=== PATIENT | female | born 1945 | race Caucasian/White ===

== ENCOUNTER 2017-07-28 17:17 | Inpatient (IN) | payer MEDICARE, OTHER ==
[~2017-07-28] VITALS: Ht 160 cm; Wt 70.3 kg
--- NOTE | ~2017-07-28 | IDS ---
Interim Discharge Summary [facility] [address] [place]. [address] NAME: ANA MARIA BLANCHARD : [birth year] STATUS : ADM IN [facility]#: [id number] AGE: 72 ADM/REG DATE : 07/28/17 MR#: [id number] REPORT SERV DATE: 08/02/17 DICTATED BY: SHAWANDA العراقي DATE: 08/01/17 REPORT STATUS : Draft TRANSCRIBED BY: MODL DATE: 08/01/17 ADMISSION DATE: 07/28/2017 DISCHARGE DATE: CONDITION OF THE PATIENT: Stable. DIAGNOSES: 1. Acute blood loss anemia status post transfusion. 2. GI hemorrhage, probably secondary to portal hypertensive gastropathy - the patient underwent both EGD and colonoscopy - EGD showed portal hypertensive gastropathy and nonbleeding mild esophageal varices. 3. Colonoscopy showed hemorrhoids. Again, no acute source of bleeding was identified. The patient does have the diagnosis of newly diagnosed cirrhosis. This is probably most likely secondary to LOW. However, her hepatitis serology is pending at this time. GI is following. The patient also has a history of mechanical aortic valve for which she is on Coumadin - Coumadin has been held as the patient was getting her endoscopy. Coumadin will be restarted in the morning. For now, she is on IV heparin for bridge therapy and the goal is again to start her back on Coumadin to keep her INR at least above 2.5 before she is discharged home. Other diagnoses that are stable in this patient include insulin-requiring diabetes mellitus, hypertension, coronary artery disease, and restless legs syndrome, which are all stable. BRIEF HOSPITAL COURSE: Please see H and P for details, but in summary, this is a patient who is 72-year-old, who came in with GI bleed and acute blood loss anemia. The patient's Coumadin was held and she was transfused with 2 units of PRBCs and GI was consulted. The patient underwent both upper and lower endoscopy and results are as dictated above. After endoscopy, the patient's heparin has been restarted and her Coumadin will be started pretty soon as no areas of acute bleeding have been identified so far. Once her INR gets therapeutic to 2.5 or above, the patient should be able to be discharged home. There is a new diagnosis which was diagnosed while in the hospital was cirrhosis. 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 However, her hepatitis serology is pending at this time. So please check on hepatitis B and hepatitis C. The patient has no history of any alcohol use. I have taken care of this patient until 08/01/2017 and one of my colleagues will be taking over care of this patient on 08/02/2017. KATHLEEN/ROSA Shawanda العراقي M.D. Interim Discharge Summary [address] [address] NAME: ANA MARIA BLANCHARD : [birth year] STATUS : ADM IN [facility]#: [id number] AGE: 72 ADM/REG DATE : 07/28/17 MR#: [id number] REPORT SERV DATE: 08/02/17 DICTATED BY: SHAWANDA العراقي DATE: 08/01/17 REPORT STATUS : Draft TRANSCRIBED BY: ROSA DATE: 08/01/17 / [id number] CC: Albaro Riojas D.O.
--- NOTE | ~2017-07-28 | EGD ---
EGD REPORT [facility] [address] [place]. [address] NAME: ANA MARIA CUETO : [birth year] STATUS : ADM IN PAT#: [id number] AGE: 72 ADM/REG DATE : 07/28/17 MR#: [id number] REPORT SERV DATE: 08/01/17 DICTATED BY: AMY BRITTON DATE: 08/01/17 REPORT STATUS : Draft TRANSCRIBED BY: [facility] DATE: 08/01/17 Endoscopy Center Patient Name: Ana Maria Cueto Date of : 1945 Attending MD: AMY BRITTON MD Procedure Date No Time: 08/01/2017 Procedure: Upper GI endoscopy Indications: Iron deficiency anemia secondary to chronic blood loss, Cirrhosis with suspected esophageal varices Referring MD: AMPARO JONES Medicines: Propofol per Anesthesia Complications: No immediate complications. Estimated blood loss: None. Procedure: Pre-Anesthesia Assessment: - ASA Grade Assessment: III - A patient with severe systemic disease. - After reviewing the risks and benefits, the patient was deemed in satisfactory condition to undergo the procedure. - Prior to the procedure, a History and Physical was performed, and patient medications and allergies were reviewed. The patient's tolerance of previous anesthesia was also reviewed. The risks and benefits of the procedure and the sedation options and risks were discussed with the patient. All questions were answered, and informed consent was obtained. Prior Anticoagulants: The patient has taken Coumadin (warfarin), last dose was 4 days prior to procedure. IV heparin was discontinued 7 hours ago. ASA Grade Assessment: III - A patient with severe systemic disease. After reviewing the risks and benefits, the patient was deemed in satisfactory condition to undergo the procedure. After obtaining informed consent, the endoscope was passed under direct vision. Throughout the procedure, the patient's blood pressure, pulse, and oxygen saturations were monitored continuously. The GIF [id number] was introduced through the mouth, and advanced to the third part of duodenum. The upper GI endoscopy was accomplished without difficulty. The patient tolerated the procedure well. Findings: Grade I and small (< 5 mm) varices with no bleeding were found in the lower third of the esophagus. These had no stigmata of recent bleeding. The varices had no red makayla signs. Mild portal hypertensive gastropathy was found in the gastric body and EGD REPORT [place] [id number] [facility] [place]. [address] NAME: ANA MARIA CUETO : [birth year] STATUS : ADM IN [facility]#: [id number] AGE: 72 ADM/REG DATE : 07/28/17 MR#: [id number] REPORT SERV DATE: 08/01/17 DICTATED BY: AMY BRITTON DATE: 08/01/17 REPORT STATUS : Draft TRANSCRIBED BY: [facility] DATE: 08/01/17 in the gastric antrum. The gastroesophageal junction (on retroflexion) was normal. The examined duodenum was normal. Impression: - Non-bleeding grade I and small (< 5 mm) esophageal varices. - Portal hypertensive gastropathy. - Normal gastroesophageal junction. - Normal examined duodenum. Recommendation: - [facility]. - Return to previous diet with modest sodium restriction. - Continue present medications. - Discontinue atenolol 50 mg daily and begin nadolol 40 mg daily which as a non-cardioselective beta-sarah can be used for primary prophylaxis of variceal hemorrhage. - Perform a colonoscopy today. Procedure Code(s): --- Professional --- 59027, Esophagogastroduodenoscopy, flexible, transoral; diagnostic, including collection of specimen(s) by brushing or washing, when performed (separate procedure) Diagnosis Code(s): --- Professional --- I85.10, Secondary esophageal varices without bleeding K76.6, Portal hypertension K31.89, Other diseases of stomach and duodenum D50.0, Iron deficiency anemia secondary to blood loss (chronic) K74.60, Unspecified cirrhosis of liver CPT copyright 2013 [employer]. All rights reserved. The codes documented in this report are preliminary and upon toy mechanic review may be revised to meet current compliance requirements. AMY BRITTON MD 08/01/2017 8:51 AM This report has been signed electronically. Number of Addenda: 0 Note Initiated On: 08/01/2017 7:27 AM Scope Withdrawal Time 0 hours 0 minutes 0 seconds [id number] [place] [address]
--- NOTE | ~2017-07-28 | CN ---
Consultation Report [facility] [address] [place]. [address] NAME: ANA MARIA CUETO : [birth year] STATUS : ADM IN [facility]#: [id number] AGE: 72 ADM/REG DATE : 07/28/17 MR#: [id number] REPORT SERV DATE: 07/29/17 DICTATED BY: ANABELA HEARD DATE: 07/29/17 REPORT STATUS : Draft TRANSCRIBED BY: MODJulio DATE: 07/29/17 CARDIOLOGY CONSULTATION DATE OF CONSULTATION: 07/29/2017 PRIMARY SWITCH COUPLER: Was Dr. Mccarthy and is now Dr. Ortega. CHIEF COMPLAINT: Fatigue. REASON FOR CONSULTATION: Mechanical aortic valve replacement. SOURCE: The patient's chart. HISTORY OF PRESENT ILLNESS: Ms. Cueto is a very pleasant 72-year-old white woman with history of mechanical aortic valve replacement by Dr. Ba in [address] [employer] mechanical prosthesis. She reports that she was in her usual state of health until about three months ago, when she began to feel bad. She saw Dr. Mo, who ordered tests and diagnosed anemia. She then saw Dr. Ortega in the office and had additional ultrasounds including carotid ultrasound. She then saw Dr. Mo, who did more labs and diagnosed severe anemia, and she was admitted for further evaluation and treatment. She has not had endoscopy yet. She has not had any blood transfusion. She has felt dizzy and nauseated on 06/04 and is still dizzy and nauseated. She has not had any syncope, no swelling. She has had some shortness of breath, but no chest pain. She has noticed fast heartbeat, but no irregular heartbeat or palpitations. She has been fatigued with generalized weakness and poor energy. REVIEW OF SYSTEMS: All other systems are negative. ALLERGIES: ANTIBIOTIC AND . MEDICATIONS AT HOME: Included Elavil, atenolol, digoxin, famciclovir, Lasix, [place], Prevacid, warfarin, meclizine, potassium, Vytorin, warfarin, and Actoplus Met. CARDIAC RISK FACTORS: Diabetes, hypertension, cholesterol, and remote tobacco. Denies family history. SOCIAL HISTORY: The patient lives in [facility]. She is . She has four children, who are alive and well. She is retired. FAMILY HISTORY: Negative for coronary disease at young age. PAST MEDICAL HISTORY: Significant for mechanical AVR in [address] [facility] [address] Ba with a [employer] mechanical prosthesis 09/25/1993. She did not have any bypasses. She Consultation Report [place] [id number] [place]. [address] NAME: ANA MARIA CUETO : [birth year] STATUS : ADM IN [facility]#: [id number] AGE: 72 ADM/REG DATE : 07/28/17 MR#: [id number] REPORT SERV DATE: 07/29/17 DICTATED BY: ANABELA HEARD DATE: 07/29/17 REPORT STATUS : Draft TRANSCRIBED BY: ROSA DATE: 07/29/17 thinks she had a stroke after the replacement. Status post tonsillectomy, status post appendectomy, status post gallbladder surgery, status post hysterectomy, status post left shoulder surgery, status post cataract surgery. PHYSICAL EXAMINATION: GENERAL: Well-developed, well-nourished, elderly white woman, in no acute distress. VITAL SIGNS: The blood pressure is 102/50, pulse 69, temperature 98.1. HEENT: Sclerae anicteric. Lips without cyanosis. Carotids 2+ and symmetrical. Bilateral bruits versus transmitted murmurs. No JVD. No thyromegaly. LUNGS: Clear to auscultation. No use of accessory muscles. HEART: Regular rate and rhythm with mechanical S2, 3/6 systolic murmur. No heaves or thrills. ABDOMEN: Positive bowel sounds. Soft, nontender. EXTREMITIES: Pulses 2+ and symmetrical. No cyanosis, clubbing, or edema. BACK: No CVA tenderness. MUSCULOSKELETAL: Good tone. NEURO: Alert and oriented x3. EKG is not yet done. LABORATORY EXAMINATION: The white count is 5.4, hemoglobin 7.6, hematocrit 25.9, platelets 170,000, MCV 68. Sodium 139, potassium 3.7, chloride 104, CO2 of 29, glucose 92, BUN 18, creatinine 0.88. Troponin of less than 0.02. Iron of 17, TIBC of 49, ferritin of 6. IMPRESSION: 1. Symptomatic microcytic iron-deficiency anemia. 2. Status post mechanical AVR 09/25/1993. 3. Murmur. 4. Carotid bruits. 5. History of stroke. 6. Cardiac risk factors including diabetes, hypertension, cholesterol, and remote tobacco. RECOMMENDATIONS: 1. IV heparin when off Coumadin and INR less than or equal to 2. 2. I agree with GI evaluation. No absolute cardiac contraindication to endoscopy. 3. Obtain results of outside carotid ultrasound. 4. Check EKG. 5. Consider echocardiogram. CRISTINA/ROSA Anabela Heard, Consultation Report [address] [place]. [address] NAME: ANA MARIA CUETO : [birth year] STATUS : ADM IN [facility]#: [id number] AGE: 72 ADM/REG DATE : 07/28/17 MR#: [id number] REPORT SERV DATE: 07/29/17 DICTATED BY: ANABELA HEARD DATE: 07/29/17 REPORT STATUS : Draft TRANSCRIBED BY: ROSA DATE: 07/29/17 Albaro / [id number] CC: MD Lupe Brantley D.O.
--- NOTE | ~2017-07-28 | EGD ---
EGD REPORT [facility] [address] [place]. [address] NAME: ANA MARIA CUETO : [birth year] STATUS : ADM IN PAT#: [id number] AGE: 72 ADM/REG DATE : 07/28/17 MR#: [id number] REPORT SERV DATE: 08/01/17 DICTATED BY: AMY BRITTON DATE: 08/01/17 REPORT STATUS : Draft [facility]ANSCRIBED BY: [facility] DATE: 08/01/17 Endoscopy Center Patient Name: Ana Maria Cueto Date of : 1945 Attending MD: AMY BRITTON MD Procedure Date No Time: 08/01/2017 Procedure: Colonoscopy Indications: Iron deficiency anemia secondary to chronic blood loss Referring MD: AMPARO JONES Medicines: Propofol per Anesthesia Complications: No immediate complications. Estimated blood loss: Minimal. Procedure: Pre-Anesthesia Assessment: - After reviewing the risks and benefits, the patient was deemed in satisfactory condition to undergo the procedure. - Prior to the procedure, a History and Physical was performed, and patient medications and allergies were reviewed. The patient's tolerance of previous anesthesia was also reviewed. The risks and benefits of the procedure and the sedation options and risks were discussed with the patient. All questions were answered, and informed consent was obtained. Prior Anticoagulants: The patient has taken Coumadin (warfarin), last dose was 4 days prior to procedure. IV heparin was discontinued 7 hours before the procedure. ASA Grade Assessment: III - A patient with severe systemic disease. After reviewing the risks and benefits, the patient was deemed in satisfactory condition to undergo the procedure. After I obtained informed consent, the scope was passed under direct vision. Throughout the procedure, the patient's blood pressure, pulse, and oxygen saturations were monitored continuously. The CF [id number] was introduced through the anus and advanced to the cecum, identified by appendiceal orifice and ileocecal valve. The colonoscopy was somewhat difficult due to significant looping. Successful completion of the procedure was aided by applying abdominal pressure. The ileocecal valve and appendiceal orifice were photographed. The patient tolerated the procedure well. The quality of the bowel preparation was adequate. The bowel preparation used was polyethylene glycol (PEG). Scope withdrawal time was greater than 6 minutes. Findings: EGD REPORT [address] [place]. [address] NAME: ANA MARIA CUETO : [birth year] STATUS : ADM IN [facility]#: [id number] AGE: 72 ADM/REG DATE : 07/28/17 MR#: [id number] REPORT SERV DATE: 08/01/17 DICTATED BY: AMY BRITTON DATE: 08/01/17 REPORT STATUS : Draft TRANSCRIBED BY: [employer] DATE: 08/01/17 The perianal and digital rectal examinations were normal. Pertinent negatives include normal sphincter tone. Non-bleeding internal hemorrhoids were found during retroflexion and were small and Grade I (internal hemorrhoids that do not prolapse). 5 mm, non-bleeding anorectal varices were found. A few small-mouthed diverticula were found in the sigmoid colon, in the descending colon and in the transverse colon. An area of moderately congested mucosa was found in the entire colon consistent with portal hypertensive colopathy. Biopsies were taken with a cold forceps from the ascending colon for histology. Estimated blood loss was minimal. The exam was otherwise without abnormality. Impression: - Non-bleeding internal hemorrhoids. - Anorectal varices. - Mild diverticulosis in the sigmoid colon, in the descending colon and in the transverse colon. - Congested mucosa in the entire examined colon consistent with portal hypertensive colopathy. Biopsied. - The examination was otherwise normal. - Cirrhosis of the liver with portal hypertension. - No evidence of active GI bleed. Recommendation: - [facility]. - Return to previous diet with modest sodium restriction. - Continue present medications. - No absolute GI contraindication to resuming anti-coagulation but in light of endoscopic findings would should for less intensive INR of 2.0-2.5. - Await pathology results. - F/U etiologic W/U for liver disease. - Return to GI clinic in 2 weeks. Procedure Code(s): --- Professional --- 64262, Colonoscopy, flexible, proximal to splenic flexure; with biopsy, single or multiple Diagnosis Code(s): --- Professional --- K64.0, First degree hemorrhoids K57.30, Diverticulosis of large intestine without perforation or abscess without bleeding K64.8, Other hemorrhoids K63.89, Other specified diseases of intestine D50.0, Iron deficiency anemia secondary to blood loss (chronic) EGD REPORT [facility] [address] [place]. [address] NAME: ANA MARIA CUETO : [birth year] STATUS : ADM IN [facility]#: [id number] AGE: 72 ADM/REG DATE : 07/28/17 MR#: [id number] REPORT SERV DATE: 08/01/17 DICTATED BY: AMY BRITTON. DATE: 08/01/17 REPORT STATUS : Draft TRANSCRIBED BY: [employer] DATE: 08/01/17 CPT copyright 2013 [employer]. All rights reserved. The codes documented in this report are preliminary and upon car rental clerk review may be revised to meet current compliance requirements. AMY BRTITON MD 08/01/2017 9:00 AM This report has been signed electronically. Number of Addenda: 0 Note Initiated On: 08/01/2017 7:25 AM Scope Withdrawal Time 0 hours 6 minutes 34 seconds [address] [facility] [address] [place] [address]
--- NOTE | ~2017-07-28 | HP ---
History And Physical [place] [address] [facility] [place]. [address] NAME: ANA MARIA BLANCHARD : [birth year] STATUS : ADM IN [facility]#: [id number] AGE: 72 ADM/REG DATE : 07/28/17 MR#: [id number] REPORT SERV DATE: 07/29/17 DICTATED BY: RICHY SAENZ DATE: 07/28/17 REPORT STATUS : Draft TRANSCRIBED BY: MODL DATE: 07/28/17 DATE OF ADMISSION: 07/28/2017 CHIEF COMPLAINT: Generalized weakness and shortness of breath. HISTORY OF PRESENT ILLNESS: This is a 72-year-old lady with history of mechanical aortic valve who is on anticoagulation with Coumadin as well as hypertension, diabetes, coronary artery disease presenting with a generalized weakness and shortness of breath. The patient was actually directly admitted from Dr. Lupe Mo's office for her symptoms. A while back ago, the patient was having the above symptoms, and on following the lab work, the patient was found to be pretty anemic with her hemoglobin at 8.8. The patient was subsequently referred to Dr. Montero for a GI evaluation. However, because the patient is on anticoagulation with Coumadin due to the mechanical aortic valve, the patient needed a cardiac clearance. To complicate the matters, the patient's hand tool filer actually left town, and the patient had to establish care with Dr. Ortega from [place] which was further delaying this process. In the meantime, the patient returned to Dr. Lupe Mo's office with continued fatigue and shortness of breath. On a recheck, her hemoglobin was 7.6. At this point in time, Dr. Lupe Mo had a discussion with Dr. Montero, and it was felt that it would be probably the best for the patient to be admitted to the hospital for further evaluation and care. The patient herself denies any obvious episode of bleeding. The patient also denies any black stools. The patient does admit to having increasing fatigue as well as shortness of breath and some lightheadedness especially with activity. The patient denies any chest pain or abdominal pains. REVIEW OF SYSTEMS: The patient denies any fevers or chills. Also, a 14-point review of systems reviewed and negative other than mentioned above. MEDICATIONS: The medication list is still pending at this time. PAST MEDICAL HISTORY: 1. History of aortic valve replacement with a mechanical valve, on Coumadin. 2. Diabetes. 3. Hypertension. 4. Coronary artery disease. 5. Restless leg syndrome. PAST SURGICAL HISTORY: 1. Hysterectomy. 2. Aortic replacement with a mechanical valve back in 1992. 3. Left shoulder surgery. FAMILY HISTORY: 1. Diabetes. 2. Breast cancer. History And Physical [address] [address] NAME: ANA MARIA BLANCHARD : [birth year] STATUS : ADM IN [facility]#: [id number] AGE: 72 ADM/REG DATE : 07/28/17 MR#: [id number] REPORT SERV DATE: 07/29/17 DICTATED BY: RICHY SAENZ DATE: 07/28/17 REPORT STATUS : Draft TRANSCRIBED BY: ROSA DATE: 07/28/17 SOCIAL HISTORY: The patient does not smoke, drink alcohol, or use any illicit drugs. The patient lives at home with her . PHYSICAL EXAMINATION: VITAL SIGNS: Temperature 97.7, blood pressure 135/63, pulse 66, respiratory rate 19, and saturating 100% on room air. GENERAL: The patient is alert and oriented x3 with no focal neurologic deficits. The patient is awake, does not appear to be in acute distress, and she is cooperative. NECK: No JVD. No lymphadenopathy. Normal thyroid. CHEST: No midline sternotomy scar and no tenderness to palpation. LUNGS: Clear to auscultation bilaterally with normal respiratory effort on room air. CARDIOVASCULAR: Regular rate and rhythm with no murmurs, rubs, or gallops and PMI is nondisplaced. ABDOMEN: Soft and nontender with active bowel sounds and no organomegaly. EXTREMITIES: No edema. Normal distal pulses. No calf tenderness. SKIN: Clean, dry, warm, and intact. LABORATORY DATA: There are no labs to be reviewed. However, based on my conversation with Dr. Lupe Mo, the patient's hemoglobin level was 8.8 a couple weeks ago, and now it is down to 7.6. ASSESSMENT: This is a 72-year-old lady with history of aortic valve replacement with a mechanical valve, on Coumadin anticoagulation, presenting with a symptomatic anemia. 1. Symptomatic anemia, without history of obvious bleeding. 2. Status post aortic valve replacement with a mechanical valve, on anticoagulation with Coumadin. 3. Hypertension. 4. Diabetes type 2. 5. Coronary artery disease. 6. Restless legs syndrome. PLAN: The plan is to admit the patient as an inpatient under telemetry monitoring. The patient will be given IV fluid resuscitation. I will go ahead and check labs to include a CBC and BMP as well as reticulocyte count percentage and iron panel. I will also do a type and cross. I will check her stools for blood, and I will give her IV fluid resuscitation. Based on her hemoglobin, the patient may need to get packed red blood cell transfusions as needed. I will go ahead and consult GI as well as Cardiology to make a more collaborative decision on how to manage her current situation. Also, Dr. Mo had mentioned possible cirrhosis with varices, and I will also screen for that with liver function panel and right upper quadrant ultrasound. For the rest of the stable past medical conditions including hypertension and diabetes, I will continue home medications and/or monitor and treat as needed. Standard DVT prophylaxis. The patient is full code at this time. DILAN/ROAS History And Physical [address] [address] NAME: ANA MARIA BLANCHARD : [birth year] STATUS : ADM IN [facility]#: [id number] AGE: 72 ADM/REG DATE : 07/28/17 MR#: [id number] REPORT SERV DATE: 07/29/17 DICTATED BY: RICHY SAENZ DATE: 07/28/17 REPORT STATUS : Draft TRANSCRIBED BY: ROSA DATE: 07/28/17 Richy Saenz MD / [id number] CC: MD Lupe Brantley D.O.
--- NOTE | ~2017-07-28 | DS ---
Discharge Summary [facility] [address] [place]. [address] NAME: ANA MARIA BLANCHARD : 49 STATUS : DIS IN PAT#: [id number] AGE: 72 ADM/REG DATE : 07/28/17 MR#: [id number] REPORT SERV DATE: 08/11/17 DICTATED BY: DANDY OWUSU DATE: 08/11/17 REPORT STATUS : Draft TRANSCRIBED BY: ROSA DATE: 08/11/17 ADMISSION DATE: 07/28/2017 DISCHARGE DATE: 08/11/2017 DISCHARGE DIAGNOSES: 1. Acute blood loss anemia likely secondary to occult gastrointestinal bleed. 2. 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 3. Newly diagnosed cirrhosis complicated by portal hypertension, varices, and pancytopenia. 4. Type 2 diabetes, uncontrolled. 5. Seasonal allergies. HOSPITAL COURSE: Please refer to both the history and physical from the admitting physician as well as the interim discharge summary dated 08/08/2017 for patient's full history and complete hospital course. Of note, my care of this patient began on 08/09/2017. While under my care, the patient continued on her heparin drip with dosing of warfarin to reach her goal INR of 3.0. On the day of discharge, her INR was found at 2.7 which was felt to be acceptable by the Cardiology Team. Therefore, from an anticoagulation standpoint for her history of mechanical aortic valve, she is safe for discharge home and she will go home and resume her prior home warfarin dosing per pharmacy recommendations. She will follow up on 08/15/2017 for an INR check. Regarding her mechanical aortic valve with increased gradient, she will follow up with Cardiology in one to two months for further assessment and will have a repeat transthoracic echocardiogram in approximately one month for further evaluation. For her anemia, this is felt most likely to be secondary to an occult GI bleed. She underwent the EGD mentioned in the prior interim summary and during my time taking care of her, her hemoglobin remained stable with no evidence of further GI bleed. There had been concern initially for possible hemolysis in the setting of her aortic valve though hematology was consulted and felt this was less likely given lack of schistocytes and no other evidence of hemolysis. She did receive IV iron while she was here, and she will follow up with the Hematology Team in approximately three to four weeks. As mentioned prior, the patient was found to have cirrhosis that was complicated by portal hypertension, varices, and pancytopenia. Her blood counts did remain stable, and she was started on nadolol 40 mg p.o. daily with the findings of varices, and she is going to follow up with GI in approximately two weeks after discharge. For her type 2 diabetes, the patient was found to have uncontrolled diabetes on admission and was started on insulin in the usual fashion, and it resulted in better control of her diabetes. After discussion with the patient, she really wished to resume her home medications on discharge and have a thorough discussion with her primary care provider about the need for possible transition to insulin. This seems like a reasonable plan, and so she will be discharged with instructions to resume her home diabetes medications and to follow up with her PCP for discussion of either titration of these medications or initiation of Discharge Summary [place] [id number] [facility] [place]. [address] NAME: ANA MARIA BLANCHARD : 49 STATUS : DIS IN PAT#: [id number] AGE: 72 ADM/REG DATE : 07/28/17 MR#: [id number] REPORT SERV DATE: 08/11/17 DICTATED BY: DANDY OWUSU DATE: 08/11/17 REPORT STATUS : Draft TRANSCRIBED BY: ROSA DATE: 08/11/17 insulin. DISCHARGE MEDICATIONS: 125 mcg of digoxin p.o. daily; 0.5 half a tablet of Vytorin p.o. at bedtime; 20 mg of furosemide p.o. Tuesday, Tuesday, Tuesday along with 20 mEq of potassium chloride p.o. Tuesday, Tuesday, Tuesday; 10 mg of Claritin p.o. daily; 40 mg of nadolol p.o. daily; 40 mg of pantoprazole p.o. at bedtime; warfarin dosing 5 mg p.o. Tuesday, , Tuesday, and Tuesday with 7.5 mg p.o. Tuesday, Tuesday, Tuesday; amitriptyline 25 to 50 mg p.o. at bedtime as needed p.r.n. for sleep; Chamberlain 10/325 one tab p.o. at bedtime as needed for leg pain; Victoza 1.8 mg subcutaneously at bedtime; Actoplus metformin 15/500 tab one tab p.o. twice per day; and 1000 mg of acetaminophen p.o. p.r.n. with a maximum of two doses daily. FOLLOWUP: As mentioned prior, the patient will follow up in a month with repeat transthoracic echocardiogram and then in another month with Cardiology for assessment of her aortic valve replacement. She will follow up with the GI physicians in approximately two weeks for her diagnosis of cirrhosis as well as her occult GI bleed. She will follow up with Hematology in three to four weeks for further assessment of her anemia as needed. She has been instructed to follow up with her primary care provider to discuss either titration of her diabetes medication versus initiation of insulin as well, and she has been counseled on signs and symptoms that would be concerning for recurrent GI bleed and the need to return to the hospital if these findings were present. Approximately 35 minutes were spent coordinating discharge. BINU/ROSA Dandy Owusu MD / [id number] CC: MD Lupe Martell D.O.
--- NOTE | ~2017-07-28 | CN ---
Consultation Report [facility] [address] [place]. [address] NAME: ANA MARIA BLANCHARD : 49 STATUS : ADM IN [facility]#: [id number] AGE: 72 ADM/REG DATE : 07/28/17 MR#: [id number] REPORT SERV DATE: 07/29/17 DICTATED BY: JAE MONTERO DATE: 07/29/17 REPORT STATUS : Draft TRANSCRIBED BY: ROSA DATE: 07/29/17 INPATIENT CONSULTATION DATE OF CONSULTATION: HISTORY OF PRESENT ILLNESS: This is a 72-year-old woman whom I am asked to assess for worsening chronic blood loss anemia and possible cirrhosis. This pleasant woman is known to me from endoscopic evaluation in 06/2015, when she had an EGD and colonoscopy remarkable for an irregular Z-line, a normal GE junction which was dilated to 48-Arabic, gastritis, and pancolonic diverticulosis with a suspicion for IBS with diarrhea. Her bowel preparation was only fair. Lately, she has been noted to be anemic with a hemoglobin of about 8. She was referred to us for possible repeat endoscopic evaluation, which we plan to do. As she is on warfarin for mechanical aortic valve, we ask for direction from her plug assembler for managing this in order to do endoscopic evaluation. She had been seeing Dr. Emanuel Mccarthy, who left his practice suddenly and she got caught in between without any advice. She came for followup to Dr. Mo yesterday, the hemoglobin was down to 7.4, so admission was arranged at [facility] for her evaluation. She also had a CT as part of her evaluation, and it has shown apparently signs of cirrhosis, splenomegaly, and portal hypertension with some varices. We do not have this for review and this was apparently performed at [facility]. She has reported absolutely no melena or hematochezia, though stools for occult blood have been sent. Interestingly, it apparently also raise the question of a lingular mass in the lung and she has not yet had a chest CT or anything to evaluate this. PAST MEDICAL HISTORY: 1. IBS with diarrhea. 2. Hypertension. 3. Diabetes. 4. Coronary artery disease. PAST SURGICAL HISTORY: Status post mechanical aortic valve, status post hysterectomy, status post left shoulder surgery. MEDICATIONS: Sliding scale insulin, Tylenol as needed, Zofran as needed, Percocet as needed. ALLERGIES: NIACIN AND MACROBID. FAMILY HISTORY: No liver disease or GI malignancy. SOCIAL HISTORY: She very rarely drinks alcohol. She is and is at bedside. Consultation Report [address] [place]. [address] NAME: ANA MARIA BLANCHARD : 49 STATUS : ADM IN [facility]#: [id number] AGE: 72 ADM/REG DATE : 07/28/17 MR#: [id number] REPORT SERV DATE: 07/29/17 DICTATED BY: JAE MONTERO DATE: 07/29/17 REPORT STATUS : Draft TRANSCRIBED BY: ROSA DATE: 07/29/17 REVIEW OF SYSTEMS: Otherwise unremarkable for constitutional, endocrine, neurologic, psychiatric, ocular, ENT, pulmonary, cardiovascular, GI, , or rheumatologic symptoms except for as noted above. PHYSICAL EXAMINATION: GENERAL: She is well nourished, in no acute distress. VITAL SIGNS: Afebrile. SKIN: Warm and dry. LUNGS: Clear. ABDOMEN: Soft. Spleen tip is just palpable, but no evidence of ascites. EXTREMITIES: No edema. LABORATORY DATA: Hemoglobin 7.4, white count slightly low at 4. INR 3.0. Electrolytes normal. Troponin normal. Platelet count borderline low at 155. There is evidence of iron deficiency with a ferritin of 6, iron of 17, and TIBC of 49. IMPRESSION: 1. Chronic blood loss anemia with evidence of iron deficiency, but no evidence of gross gastrointestinal bleeding. 2. Apparent cirrhosis of the liver with portal hypertension noted on CT scan. 3. Irritable bowel syndrome. 4. Possible lingular mass. RECOMMENDATIONS: 1. Would hold her warfarin into a daily INR. 2. Would start IV heparin when her INR is less than 2. 3. We will plan to prep for EGD and colonoscopy once her INR is below 1.5 and will create a heparin window in order to do the examinations. 4. We will get hepatic and portal Doppler ultrasound. 5. We will get a CT scan of the chest to further evaluate the lingula. 6. Serologic workup for possible etiologies for cirrhosis will be undertaken with viral hepatitis, serologies, BHAVESH, smooth muscle antibody, anti-mitochondrial antibody, ceruloplasmin, and alpha-1 antitrypsin level. 7. In light of her symptoms from her anemia, hemoglobin now less than 7.5, would go ahead and transfuse 2 units of packed red blood cells. The above plan was discussed in detail with the family, who agrees. /ROSA Jae Montero M.D. Consultation Report [address] [address] NAME: ANA MARIA BLANCHARD : 49 STATUS : ADM IN PAT#: [id number] AGE: 72 ADM/REG DATE : 07/28/17 MR#: [id number] REPORT SERV DATE: 07/29/17 DICTATED BY: JAE MONTERO DATE: 07/29/17 REPORT STATUS : Draft TRANSCRIBED BY: ROSA DATE: 07/29/17 / [id number] CC: MD Lupe Brantley D.O.
--- NOTE | ~2017-07-28 | CN ---
Consultation Report [facility] [address] [place]. [address] NAME: ANA MARIA CUETO : 49 STATUS : ADM IN [facility]#: [id number] AGE: 72 ADM/REG DATE : 07/28/17 MR#: [id number] REPORT SERV DATE: 08/09/17 DICTATED BY: SIMONA TINEO III DATE: 08/08/17 REPORT STATUS : Draft TRANSCRIBED BY: ROSA DATE: 08/08/17 CONSULTATION DATE OF CONSULTATION: 08/08/2017 REASON FOR CONSULTATION: Possible hemolytic anemia. HISTORY OF PRESENT ILLNESS: Ms. Cueto is a 72-year-old female who has a mechanical aortic valve since the mid and is anticoagulated with Coumadin. She presented with generalized weakness and shortness of breath and found to be profoundly anemic with a hemoglobin of 8.8. She has undergone extensive GI evaluation without any findings of active bleeding. She has been diagnosed though with cirrhosis since this hospitalization and she did have gastric varices found on endoscopy. She was also noted to have heme-positive stools. She has had an extensive Cardiology workup as well to evaluate for possible valve dysfunction. Presently, she is feeling very well, without any current shortness of breath. The patient does note severe ice cravings and crunches ice constantly. PAST MEDICAL HISTORY: 1. Aortic valve replacement with mechanical valve, on chronic Coumadin. 2. Diabetes. 3. Hypertension. 4. Coronary artery disease. PAST SURGICAL HISTORY: 1. Hysterectomy. 2. Aortic valve replacement in 1992. 3. Status post left shoulder surgery. FAMILY HISTORY: Significant for diabetes and breast cancer. SOCIAL HISTORY: Negative for any tobacco, alcohol, or drug abuse. REVIEW OF SYSTEMS: A comprehensive review of systems is performed and is negative unless noted in the HPI. PHYSICAL EXAMINATION: VITAL SIGNS: Blood pressure is 186/72, temperature is 98.4, and pulse is 72. GENERAL: This is a well-developed, well-nourished female, in no acute distress. EYES: Pupils are round and reactive to light. There are anicteric sclerae. NECK: Supple with no masses or thyroid enlargement. No JVD. CARDIOVASCULAR: Regular rate and rhythm with a mechanical heart valve which is clear and crisp. There is no peripheral edema. LUNGS: Clear to auscultation bilaterally with normal respiratory effort. ABDOMEN: Soft, nondistended, and nontender with no noted hepatosplenomegaly. Consultation Report [facility] [address] [place]. [address] NAME: ANA MARIA CUETO : 49 STATUS : ADM IN [facility]#: [id number] AGE: 72 ADM/REG DATE : 07/28/17 MR#: [id number] REPORT SERV DATE: 08/09/17 DICTATED BY: SIMONA TINEO III DATE: 08/08/17 REPORT STATUS : Draft TRANSCRIBED BY: ROSA DATE: 08/08/17 SKIN: Warm and dry with no jaundice. PSYCH: She is alert, oriented, comprehends our conversation. Normal judgment and affect. LABORATORY DATA: Labs this admission have been reviewed. Her haptoglobin was less than 10. Her LDH was mildly elevated at 262. Her ferritin is 6 with an elevated total iron binding capacity of 489. Her peripheral smear was personally reviewed. Red blood cells had very minimal fragmented cells present, predominantly hyperchromic and microcytic. White blood cells had normal morphology. Platelets had normal morphology. ASSESSMENT AND PLAN: Anemia, suspect secondary to iron deficiency from chronic gastrointestinal blood loss. Her smear is not consistent with large amount of hemolysis. Additionally, her bilirubin is normal. Haptoglobin can and often drops after transfusions. I suspect this is the etiology of the low haptoglobin. I will give her IV iron while she is an inpatient. I did review the anaphylactic risk. She agrees to treatment. We will plan followup in several weeks as an outpatient to assess her response. LAMBERT/ROSA Simona Tineo III, M.D. / [id number] CC: MD Lupe Dang II, D.O.
--- NOTE | ~2017-07-28 | OP ---
Record Of Operation [facility] [address] [place]. [address] NAME: ANA MARIA BLANCHARD : 49 STATUS : ADM IN [facility]#: [id number] AGE: 72 ADM/REG DATE : 07/28/17 MR#: [id number] REPORT SERV DATE: 08/10/17 DICTATED BY: STANLEY CHEEMA DATE: 08/09/17 REPORT STATUS : Draft TRANSCRIBED BY: ROSA DATE: 08/09/17 DATE OF PROCEDURE: INDICATIONS: A 72-year-old woman with prosthetic aortic valve with elevated gradients. PROCEDURE: After questions were answered and consents were signed, the patient was sedated with propofol per Anesthesia. The probe was placed in mid esophagus, and images were obtained without difficulty. At the conclusion of the procedure, the probe was withdrawn. The patient is recovering in the short-stay unit. No complications were noted. 2-D INTERPRETATION: The left ventricular function is normal. No focal wall motion abnormality is noted. The mitral valve leaflets are mildly thickened but opened adequately. No prolapse was noted. The left atrium is increased in size. No thrombus is noted in the left atrium nor the left atrial appendage. The aortic valve is a mechanical prosthesis, which is well-seated. There is no obvious thrombus or a pannus suggested. There is some turbulent flow in the valve in the area the valve itself. The interatrial septum is intact. The tricuspid valve was grossly normal. The right atrium is increased in size. The right ventricle was grossly normal in size. No obvious pericardial effusion is noted. Moderate atherosclerotic plaquing is noted in the descending aorta and aortic arch. COLOR FLOW: Moderate mitral and tricuspid regurgitation with mild aortic insufficiency. DOPPLER: Doppler flow velocities across the aortic valve are increased. Redone chest wall images show aortic valve peak velocity of 3.4 with a VTI of 82 and a mean gradient of 27. The LVOT VTI was 43. CONCLUSION: 1. Normal left ventricular systolic function with estimated LVEF of 55%. No obvious abnormality with the aortic prosthesis. 2. Elevated gradients involving the aortic valve, but [id number] involving the left ventricular outflow tract. Some increased gradients could be related to the patient's anemia. WO/MODL Stanley Cheema M.D., Ph.D, F.A.C.C. / [id number] CC: MD Lupe Martell D.O.
--- NOTE | ~2017-07-28 | IDS ---
Interim Discharge Summary [facility] [address] [place]. [address] NAME: ANA MARIA BLANCHARD : 49 STATUS : ADM IN [facility]#: [id number] AGE: 72 ADM/REG DATE : 07/28/17 MR#: [id number] REPORT SERV DATE: 08/08/17 DICTATED BY: DARIN DEL REAL II DATE: 08/08/17 REPORT STATUS : Draft TRANSCRIBED BY: MODL DATE: 08/08/17 ADMISSION DATE: 07/28/2017 DISCHARGE DATE: DATE OF INTERIM: 08/08/2017. INTERIM DIAGNOSES: 1. Mechanical aortic valve repair dysfunction with increased gradient. 2. Possible hemolytic anemia with low haptoglobin. 3. Acute anemia requiring transfusion secondary to hemolysis versus occult gastrointestinal bleed versus both, currently stable, status post EGD and colonoscopy. 4. Cirrhosis with portal hypertension and varices, portal gastropathy, and anorectal varices. 5. Chronic thrombocytopenia. 6. Uncontrolled diabetes mellitus type 2. 7. Hypertension. 8. History of coronary artery disease. CONSULTS: Dr. Drummond with Cardiology and Dr. Montero with GI. PROCEDURES: EGD and colonoscopy showing nonbleeding grade 1 and small esophageal varices, portal hypertensive gastropathy, nonbleeding internal hemorrhoids, anorectal varices, mild diverticulosis in the sigmoid, in the descending, and in the transverse colon, congested mucosa in the entirely examined colon consistent with portal hypertensive colopathy, but no evidence of active GI bleed. BRIEF HISTORY OF PRESENT ILLNESS: The patient is a 72-year-old female with the above history, who presented to [facility] due to weakness, shortness of breath, and found to have symptomatic anemia with hemoglobin of 7.6. For detailed history and physical examination, please see Dr. Herndon' note from 07/28/2017. HOSPITAL COURSE: Please see Dr. Wall's interim from 08/02/2017 for interim summary through that date. The patient had positive Hemoccults x2 and Dr. Montero did the above-mentioned endoscopies without evidence of active bleeding, but certainly high risk for bleeding. She may have some degree of occult GI bleed, however, also had a low haptoglobin and likely mechanical aortic valve dysfunction with an echo showing an increased velocity and gradient suggestive of prosthetic stenosis with a peak gradient of 68 and mean gradient of 43 mmHg. Echo also showed mild pulmonary hypertension, mild mitral and naei-uk-pdttnjku tricuspid regurgitation, mild biatrial enlargement, moderate diastolic dysfunction, and preserved EF of 55% to 60%. Since EGD, her hemoglobin has actually been stable around 9, not requiring any further transfusions. Dr. Drummond is recommending a CT of the aortic valve today and a Heme-Onc consult to evaluate peripheral smear to confirm hemolysis. Further valve workup per Dr. Drummond. Otherwise, GI has recommended PPI and nadolol. Her goal INR is 3 per [facility] and currently she has been back on Coumadin and slowly trending up, currently 2.3. She also has fairly uncontrolled diabetes and was on a non-insulin regimen at home, which sounded like she had poor control with blood sugars in the 200s and 300s there as well. I have Interim Discharge Summary [address] [place]. [address] NAME: ANA MARIA BLANCHARD : 49 STATUS : ADM IN [facility]#: [id number] AGE: 72 ADM/REG DATE : 07/28/17 MR#: [id number] REPORT SERV DATE: 08/08/17 DICTATED BY: DARIN DEL REAL II DATE: 08/08/17 REPORT STATUS : Draft TRANSCRIBED BY: MODL DATE: 08/08/17 transitioned her to Levemir. She is also getting sliding scale insulin. Currently requiring upwards of 40 units of Levemir to get her down to 80, though currently she is n.p.o., so will decrease it by half and monitor for hypoglycemia. heel painter has been consulted as well. For the most part, the patient has been asymptomatic since her blood transfusion and feels well and has no symptoms. Hopefully, we will get some answers today pending Heme-Onc consults and CT of the aortic valve. Otherwise, one of my colleagues will take over tomorrow. MILIND/ROSA Darin Del Real II, MD / [id number] CC: Darin Del Real II, MD
[~2017-07-28 17:17] MED LIST: ACTOPLUS M15 MG/500 PO; ACTOS15; AMIT25 PO; ATEN50 PO; AVANDAMET1 TA4 PO; C5 PO; CALTRA600D PO; DCN100 PO; DIGITEK0.125 MG PO; KLOR-CON 1010 MEQ PO; L20 PO; LAN125 PO; LORTAB 5 PO; LOVENOX1C SC; LOVENOX80 SC; VICTOZA IJ; VYTORIN 10/20 T1 TAB PO
[2017-07-28 21:58] LABS: BASOPHILS 0.8 %; BASOPHILS ABSOLUTE 0.03 10/3/uL (0.0-0.16); EOSINOPHILS 2.3 %; EOSINOPHILS ABSOLUTE 0.09 10/3/uL (0.0-0.53); HEMATOCRIT 25.5 % (36.0-48.0); HEMOGLOBIN 7.4 g/dL (12.0-16.0); LYMPHOCYTES 33.4 %; LYMPHOCYTES ABSOLUTE 1.33 10/3/uL (0.67-4.30); MEAN CORPUSCULAR HEMOGLOB 19.9 pg (26.0-34.0); MEAN PLATELET VOLUME 10.3 fL (9.2-13.0); MONOCYTES 10.3 %; MONOCYTES ABSOLUTE 0.41 10/3/uL (0.21-1.20); NEUTROPHILS 53.2 %; NEUTROPHILS ABSOLUTE 2.12 10/3/uL (2.02-8.40); PLATELET COUNT 155 10/3/uL (150-400); RBC DISTRIBUTION WIDTH 17.1 % (12.0-16.0); RED CELL COUNT 3.71 10/6/uL (4.0-5.6); RETICULOCYTE COUNT 2.7 % (0.5-2.5); RETICULOCYTE COUNT ABSOLUTE 99.4 10/3/uL (20.2-119.8)
[2017-07-28 22:04] LABS: MEAN CORPUSCULAR VOLUME 68.7 fL (80-100)
[2017-07-28 22:05] LABS: MANUAL DIFF NO %
[2017-07-28 22:06] LABS: INTERNATIONAL NORMAL RATI 3.8 UNITS (-); PARTIAL THROMBO TIME 42.5 SEC (22.5-37.2)
[2017-07-28 22:07] LABS: PROTIME (NOT ORD) 37.1 SEC (12.0-14.5)
[2017-07-28 22:16] LABS: ANISOCYTOSIS 1+ (5-10/OIF) (0-5/OIF); FERRITIN 6 NG/ML (8-252); IRON BINDING CAPACITY 489 MCG/DL (225-410); IRON, SERUM 17 MCG/DL (35-150); RBC MORPHOLOGY NORM (NORMAL); TROPONIN I <0.02 NG/ML (<0.05)
[2017-07-29 03:31] LABS: BASOPHILS 0.6 %; BASOPHILS ABSOLUTE 0.03 10/3/uL (0.0-0.16); EOSINOPHILS 2.6 %; EOSINOPHILS ABSOLUTE 0.14 10/3/uL (0.0-0.53); HEMATOCRIT 25.9 % (36.0-48.0); HEMOGLOBIN 7.6 g/dL (12.0-16.0); IMMATURE GRANULOCYTES 0.2 %; IMMATURE GRANULOCYTES ABSOLUTE 0.01 10/3/uL (0.0-0.11); LYMPHOCYTES 48.7 %; LYMPHOCYTES ABSOLUTE 2.61 10/3/uL (0.67-4.30); MEAN CORPUS HGB CONC 29.3 g/dL (32.0-36.0); MEAN CORPUSCULAR HEMOGLOB 20.1 pg (26.0-34.0); MEAN CORPUSCULAR VOLUME 68.3 fL (80-100); MEAN PLATELET VOLUME 10.7 fL (9.2-13.0); MONOCYTES ABSOLUTE 0.59 10/3/uL (0.21-1.20); NEUTROPHILS 36.9 %; NEUTROPHILS ABSOLUTE 1.98 10/3/uL (2.02-8.40); PLATELET COUNT 170 10/3/uL (150-400); RBC DISTRIBUTION WIDTH 17.1 % (12.0-16.0); RED CELL COUNT 3.79 10/6/uL (4.0-5.6); WHITE BLOOD CELLS 5.4 10/3/uL (4.5-10.5)
[2017-07-29 03:34] LABS: MANUAL DIFF NO %
[2017-07-29 03:41] LABS: BUN (BLOOD UREA NITROGEN) 18 MG/DL (6-23); CALCIUM, SERUM 8.7 MG/DL (8.5-10.4); CHLORIDE, SERUM 104 MMOL/L (96-112); CREATININE 0.88 MG/DL (0.55-1.02); GFR AFRICAN AMERICAN 77 ML/MIN (>=60); GFR NON AFRICAN AMERICAN 67 ML/MIN (>=60); POTASSIUM, SERUM 3.7 MMOL/L (3.5-5.3); SODIUM, SERUM 139 MMOL/L (135-148); TROPONIN I <0.02 NG/ML (<0.05)
[2017-07-29 03:47] LABS: ANISOCYTOSIS 1+ (5-10/OIF) (0-5/OIF); HYPOCHROMIA 3+ (>30/OIF) (0-2/OIF); PLATELET ESTIMATE ADQ (ADEQUATE); POLYCHROMASIA 1+ (2-5/OIF) (0-1/OIF)
[2017-07-29 03:50] LABS: CO2 (CARBON DIOXIDE) 29 MMOL/L (24-34); GLUCOSE, SERUM 92 MG/DL (60-99)
[2017-07-29 09:47] LABS: HEMATOCRIT 25.4 % (36.0-48.0); HEMOGLOBIN 7.4 g/dL (12.0-16.0)
[2017-07-29] MEDS ORDERED: ATEN50 PO (17:22)
[2017-07-29] MEDS ORDERED: AMIT25 PO (17:22)
[2017-07-29] MEDS ORDERED: L20 PO (17:23)
[2017-07-29] MEDS ORDERED: LAN125 PO (17:23)
[2017-07-29] MEDS ORDERED: NORCO1 TAB PO (17:23)
[2017-07-29] MEDS ORDERED: PREV30 PO (17:24)
[2017-07-29] MEDS ORDERED: ACTOPLUS M15 MG/500 PO (17:25)
[2017-07-29] MEDS ORDERED: VICTOZA18 MG/3 ML SC (17:25)
[2017-07-29] MEDS ORDERED: KLOR-CON M2020 MEQ PO (17:26)
[2017-07-29] MEDS ORDERED: COUMADIN7.5 MG PO (17:27)
[2017-07-29] MEDS ORDERED: C5 PO (17:27)
[2017-07-29] MEDS ORDERED: VYTORIN 10/20 T1 TAB PO (17:27)
[2017-07-29] MEDS ORDERED: ACET500CAP PO (17:28)
[2017-07-29 17:30] LABS: ALBUMIN 3.6 G/DL (3.5-5.0); DIRECT BILIRUBIN 0.2 MG/DL (0.0-0.4); INDIRECT BILIRUBIN(NOT ORDER) 0.4 MG/DL (0.1-0.9); TOTAL BILIRUBIN 0.6 MG/DL (0-1.2); TOTAL PROTEIN 7.3 G/DL (6.0-8.5)
[2017-07-30 04:23] LABS: BASOPHILS 0.7 %; BASOPHILS ABSOLUTE 0.03 10/3/uL (0.0-0.16); EOSINOPHILS 2.9 %; EOSINOPHILS ABSOLUTE 0.12 10/3/uL (0.0-0.53); IMMATURE GRANULOCYTES 0.2 %; IMMATURE GRANULOCYTES ABSOLUTE 0.01 10/3/uL (0.0-0.11); LYMPHOCYTES 34.5 %; LYMPHOCYTES ABSOLUTE 1.42 10/3/uL (0.67-4.30); MEAN CORPUS HGB CONC 29.7 g/dL (32.0-36.0); MEAN CORPUSCULAR HEMOGLOB 21.4 pg (26.0-34.0); MONOCYTES 12.2 %; NEUTROPHILS 49.5 %; NEUTROPHILS ABSOLUTE 2.03 10/3/uL (2.02-8.40); PLATELET COUNT 151 10/3/uL (150-400); RBC DISTRIBUTION WIDTH 19.9 % (12.0-16.0); RED CELL COUNT 4.16 10/6/uL (4.0-5.6); WHITE BLOOD CELLS 4.1 10/3/uL (4.5-10.5)
[2017-07-30 04:24] LABS: HEMOGLOBIN 8.9 g/dL (12.0-16.0); MEAN CORPUSCULAR VOLUME 72.1 fL (80-100)
[2017-07-30 04:25] LABS: MANUAL DIFF NO %
[2017-07-30 04:43] LABS: ANISOCYTOSIS 1+ (5-10/OIF) (0-5/OIF); PLATELET ESTIMATE ADQ (ADEQUATE); POLYCHROMASIA 1+ (2-5/OIF) (0-1/OIF)
[2017-07-30 04:46] LABS: PROTIME (NOT ORD) 22.3 SEC (12.0-14.5)
[2017-07-30 08:54] LABS: HEMATOCRIT 32.5 % (36.0-48.0); HEMOGLOBIN 9.8 g/dL (12.0-16.0)
[2017-07-31 08:07] LABS: BASOPHILS 1.3 %; BASOPHILS ABSOLUTE 0.05 10/3/uL (0.0-0.16); EOSINOPHILS 3.7 %; EOSINOPHILS ABSOLUTE 0.14 10/3/uL (0.0-0.53); HEMATOCRIT 33.2 % (36.0-48.0); HEMOGLOBIN 9.9 g/dL (12.0-16.0); IMMATURE GRANULOCYTES 0.3 %; IMMATURE GRANULOCYTES ABSOLUTE 0.01 10/3/uL (0.0-0.11); LYMPHOCYTES 43.6 %; LYMPHOCYTES ABSOLUTE 1.63 10/3/uL (0.67-4.30); MEAN CORPUS HGB CONC 29.8 g/dL (32.0-36.0); MEAN CORPUSCULAR HEMOGLOB 21.8 pg (26.0-34.0); MEAN PLATELET VOLUME 10.4 fL (9.2-13.0); MONOCYTES 9.6 %; MONOCYTES ABSOLUTE 0.36 10/3/uL (0.21-1.20); NEUTROPHILS 41.5 %; NEUTROPHILS ABSOLUTE 1.55 10/3/uL (2.02-8.40); PLATELET COUNT 152 10/3/uL (150-400); RBC DISTRIBUTION WIDTH 19.6 % (12.0-16.0); RED CELL COUNT 4.55 10/6/uL (4.0-5.6); WHITE BLOOD CELLS 3.7 10/3/uL (4.5-10.5)
[2017-07-31 08:13] LABS: MANUAL DIFF NO %
[2017-07-31 08:29] LABS: ANISOCYTOSIS 1+ (5-10/OIF) (0-5/OIF); PLATELET ESTIMATE ADQ (ADEQUATE)
[2017-07-31 08:30] LABS: INTERNATIONAL NORMAL RATI 1.5 UNITS (-)
[2017-08-01 04:59] LABS: BASOPHILS 1.1 %; BASOPHILS ABSOLUTE 0.04 10/3/uL (0.0-0.16); EOSINOPHILS 2.4 %; EOSINOPHILS ABSOLUTE 0.09 10/3/uL (0.0-0.53); HEMATOCRIT 29.6 % (36.0-48.0); HEMOGLOBIN 8.8 g/dL (12.0-16.0); LYMPHOCYTES 44.6 %; LYMPHOCYTES ABSOLUTE 1.65 10/3/uL (0.67-4.30); MANUAL DIFF NO %; MEAN CORPUS HGB CONC 29.7 g/dL (32.0-36.0); MEAN CORPUSCULAR HEMOGLOB 21.5 pg (26.0-34.0); MEAN CORPUSCULAR VOLUME 72.2 fL (80-100); MEAN PLATELET VOLUME 10.3 fL (9.2-13.0); MONOCYTES 12.7 %; MONOCYTES ABSOLUTE 0.47 10/3/uL (0.21-1.20); NEUTROPHILS 39.2 %; NEUTROPHILS ABSOLUTE 1.45 10/3/uL (2.02-8.40); PLATELET COUNT 132 10/3/uL (150-400); RBC DISTRIBUTION WIDTH 19.9 % (12.0-16.0); WHITE BLOOD CELLS 3.7 10/3/uL (4.5-10.5)
[2017-08-01 05:01] LABS: INTERNATIONAL NORMAL RATI 1.4 UNITS (-); PROTIME (NOT ORD) 17.3 SEC (12.0-14.5)
[2017-08-01 05:13] LABS: CALCIUM, SERUM 8.8 MG/DL (8.5-10.4); CHLORIDE, SERUM 107 MMOL/L (96-112); CO2 (CARBON DIOXIDE) 26 MMOL/L (24-34); CREATININE 0.63 MG/DL (0.55-1.02); GFR AFRICAN AMERICAN 105 ML/MIN (>=60); GFR NON AFRICAN AMERICAN 91 ML/MIN (>=60); POTASSIUM, SERUM 3.5 MMOL/L (3.5-5.3); SODIUM, SERUM 142 MMOL/L (135-148)
[2017-08-01 05:14] LABS: BUN (BLOOD UREA NITROGEN) 8 MG/DL (6-23); GLUCOSE, SERUM 137 MG/DL (60-99)
[2017-08-01 06:11] LABS: PLATELET ESTIMATE SLT DEC (ADEQUATE)
[2017-08-01 06:12] LABS: ANISOCYTOSIS 1+ (5-10/OIF) (0-5/OIF)
[2017-08-01 06:13] LABS: BASOPHILIC STIPPLING 1+ (2-5/OIF) (0-1/OIF); POLYCHROMASIA 1+ (2-5/OIF) (0-1/OIF)
[2017-08-01 10:42] LABS: BASOPHILS 1.2 %; BASOPHILS ABSOLUTE 0.03 10/3/uL (0.0-0.16); EOSINOPHILS 4.1 %; HEMATOCRIT 29.7 % (36.0-48.0); HEMOGLOBIN 8.9 g/dL (12.0-16.0); IMMATURE GRANULOCYTES 0.4 %; IMMATURE GRANULOCYTES ABSOLUTE 0.01 10/3/uL (0.0-0.11); LYMPHOCYTES 38.2 %; LYMPHOCYTES ABSOLUTE 0.94 10/3/uL (0.67-4.30); MEAN CORPUSCULAR HEMOGLOB 21.9 pg (26.0-34.0); MONOCYTES 10.2 %; MONOCYTES ABSOLUTE 0.25 10/3/uL (0.21-1.20); NEUTROPHILS 45.9 %; NEUTROPHILS ABSOLUTE 1.13 10/3/uL (2.02-8.40); PLATELET COUNT 132 10/3/uL (150-400); RBC DISTRIBUTION WIDTH 20.3 % (12.0-16.0); RED CELL COUNT 4.07 10/6/uL (4.0-5.6); WHITE BLOOD CELLS 2.5 10/3/uL (4.5-10.5)
[2017-08-01 10:43] LABS: MANUAL DIFF NO %
[2017-08-01 10:50] LABS: INTERNATIONAL NORMAL RATI 1.4 UNITS (-); PARTIAL THROMBO TIME 29.4 SEC (22.5-37.2); PROTIME (NOT ORD) 17.2 SEC (12.0-14.5)
[2017-08-01 11:15] LABS: ANISOCYTOSIS 1+ (5-10/OIF) (0-5/OIF); PLATELET ESTIMATE SLT DEC (ADEQUATE)
[2017-08-02 05:30] LABS: BASOPHILS 0.6 %; BASOPHILS ABSOLUTE 0.02 10/3/uL (0.0-0.16); EOSINOPHILS 4.1 %; EOSINOPHILS ABSOLUTE 0.14 10/3/uL (0.0-0.53); HEMATOCRIT 30.8 % (36.0-48.0); HEMOGLOBIN 9.1 g/dL (12.0-16.0); LYMPHOCYTES 50.4 %; LYMPHOCYTES ABSOLUTE 1.72 10/3/uL (0.67-4.30); MANUAL DIFF NO %; MEAN CORPUS HGB CONC 29.5 g/dL (32.0-36.0); MEAN CORPUSCULAR HEMOGLOB 21.5 pg (26.0-34.0); MEAN CORPUSCULAR VOLUME 72.8 fL (80-100); MEAN PLATELET VOLUME 10.2 fL (9.2-13.0); MONOCYTES ABSOLUTE 0.41 10/3/uL (0.21-1.20); NEUTROPHILS 32.9 %; NEUTROPHILS ABSOLUTE 1.12 10/3/uL (2.02-8.40); PLATELET COUNT 140 10/3/uL (150-400); RBC DISTRIBUTION WIDTH 20.9 % (12.0-16.0); RED CELL COUNT 4.23 10/6/uL (4.0-5.6); WHITE BLOOD CELLS 3.4 10/3/uL (4.5-10.5)
[2017-08-02 05:34] LABS: INTERNATIONAL NORMAL RATI 1.4 UNITS (-); PROTIME (NOT ORD) 16.7 SEC (12.0-14.5)
[2017-08-02 05:41] LABS: A/G RATIO 0.8 (0.7-1.9); ALBUMIN 3.2 G/DL (3.5-5.0); ALKALINE PHOSPHATASE 71 U/L (45-117); BUN (BLOOD UREA NITROGEN) 9 MG/DL (6-23); CALCIUM, SERUM 9.1 MG/DL (8.5-10.4); CHLORIDE, SERUM 106 MMOL/L (96-112); CO2 (CARBON DIOXIDE) 26 MMOL/L (24-34); CREATININE 0.72 MG/DL (0.55-1.02); GFR AFRICAN AMERICAN 98 ML/MIN (>=60); GFR NON AFRICAN AMERICAN 85 ML/MIN (>=60); GLOBULIN 3.8 G/DL (2.5-4.1); POTASSIUM, SERUM 3.7 MMOL/L (3.5-5.3); SGOT(AST) 41 U/L (5-40); SGPT(ALT) 37 U/L (5-65); SODIUM, SERUM 140 MMOL/L (135-148); TOTAL BILIRUBIN 0.6 MG/DL (0-1.2)
[2017-08-02 05:44] LABS: GLUCOSE, SERUM 173 MG/DL (60-99)
[2017-08-02 05:53] LABS: ANISOCYTOSIS 1+ (5-10/OIF) (0-5/OIF); PLATELET ESTIMATE SLT DEC (ADEQUATE)
[2017-08-02 05:54] LABS: POLYCHROMASIA 1+ (2-5/OIF) (0-1/OIF)
[2017-08-02 06:25] LABS: ALPHA-1-ANTITRYPSIN 170 mg/dL (100-200); CERULOPLASMIN 42 mg/dL (7-220)
[2017-08-02 10:54] LABS: HEPATITIS C ANTIBODY NON-REACTIVE (NON-REACT)
[2017-08-02 10:55] LABS: HEPATITIS B CORE AB IGM NON-REACTIVE (NON-REAC)
[2017-08-02 10:56] LABS: HEP A ANTIBODY IGM NON-REACTIVE (NON-REACT)
[2017-08-02 11:22] LABS: HEPATITIS B SURFACE ANTIGEN NON-REACTIVE (NON-REACT)
[2017-08-02 11:41] LABS: ANA TITER <1:40 TITER
[2017-08-03 05:17] LABS: BASOPHILS 0.9 %; BASOPHILS ABSOLUTE 0.03 10/3/uL (0.0-0.16); EOSINOPHILS 3.4 %; EOSINOPHILS ABSOLUTE 0.11 10/3/uL (0.0-0.53); HEMOGLOBIN 8.9 g/dL (12.0-16.0); IMMATURE GRANULOCYTES 0.3 %; IMMATURE GRANULOCYTES ABSOLUTE 0.01 10/3/uL (0.0-0.11); LYMPHOCYTES 47.4 %; LYMPHOCYTES ABSOLUTE 1.52 10/3/uL (0.67-4.30); MEAN CORPUS HGB CONC 29.7 g/dL (32.0-36.0); MEAN CORPUSCULAR HEMOGLOB 21.7 pg (26.0-34.0); MEAN CORPUSCULAR VOLUME 73.2 fL (80-100); MEAN PLATELET VOLUME 10.5 fL (9.2-13.0); MONOCYTES 13.7 %; MONOCYTES ABSOLUTE 0.44 10/3/uL (0.21-1.20); NEUTROPHILS 34.3 %; PLATELET COUNT 129 10/3/uL (150-400); RBC DISTRIBUTION WIDTH 21.3 % (12.0-16.0); WHITE BLOOD CELLS 3.2 10/3/uL (4.5-10.5)
[2017-08-03 05:18] LABS: MANUAL DIFF NO %
[2017-08-03 05:23] LABS: INTERNATIONAL NORMAL RATI 1.3 UNITS (-); PROTIME (NOT ORD) 16.5 SEC (12.0-14.5)
[2017-08-03 05:38] LABS: MICROCYTES 1+ (5-10/OIF) (0-5/OIF); PLATELET ESTIMATE DEC (ADEQUATE)
[2017-08-03 05:40] LABS: ANISOCYTOSIS 1+ (5-10/OIF) (0-5/OIF); HYPOCHROMIA 1+ (3-10/OIF) (0-2/OIF); POIKILOCYTOSIS 1+ (5-10/OIF) (0-5/OIF); TEARDROP SHAPED RBCS OCC (0-2/OIF)
[2017-08-03 11:37] LABS: MITOCHONDRIAL ANTIBODY Negative (NEG); SMOOTH MUSCLE ANTIBODIES Negative (NEG)
[2017-08-04 03:41] LABS: BASOPHILS 0.6 %; BASOPHILS ABSOLUTE 0.02 10/3/uL (0.0-0.16); EOSINOPHILS 3.8 %; EOSINOPHILS ABSOLUTE 0.13 10/3/uL (0.0-0.53); HEMATOCRIT 31.6 % (36.0-48.0); HEMOGLOBIN 9.3 g/dL (12.0-16.0); LYMPHOCYTES 48.5 %; LYMPHOCYTES ABSOLUTE 1.64 10/3/uL (0.67-4.30); MEAN CORPUS HGB CONC 29.4 g/dL (32.0-36.0); MEAN CORPUSCULAR HEMOGLOB 21.5 pg (26.0-34.0); MEAN CORPUSCULAR VOLUME 73.1 fL (80-100); MEAN PLATELET VOLUME 10.7 fL (9.2-13.0); MONOCYTES 8.9 %; NEUTROPHILS 38.2 %; NEUTROPHILS ABSOLUTE 1.29 10/3/uL (2.02-8.40); PLATELET COUNT 131 10/3/uL (150-400); RBC DISTRIBUTION WIDTH 21.3 % (12.0-16.0); RED CELL COUNT 4.32 10/6/uL (4.0-5.6); WHITE BLOOD CELLS 3.4 10/3/uL (4.5-10.5)
[2017-08-04 03:42] LABS: MANUAL DIFF NO %
[2017-08-04 03:45] LABS: INTERNATIONAL NORMAL RATI 1.3 UNITS (-); PROTIME (NOT ORD) 15.6 SEC (12.0-14.5)
[2017-08-04 03:46] LABS: PARTIAL THROMBO TIME 73.7 SEC (22.5-37.2)
[2017-08-04 03:53] LABS: CHLORIDE, SERUM 104 MMOL/L (96-112); CO2 (CARBON DIOXIDE) 29 MMOL/L (24-34); CREATININE 0.81 MG/DL (0.55-1.02); GFR AFRICAN AMERICAN 85 ML/MIN (>=60); GFR NON AFRICAN AMERICAN 74 ML/MIN (>=60); POTASSIUM, SERUM 4.1 MMOL/L (3.5-5.3); SODIUM, SERUM 139 MMOL/L (135-148)
[2017-08-04 03:55] LABS: BUN (BLOOD UREA NITROGEN) 15 MG/DL (6-23); GLUCOSE, SERUM 214 MG/DL (60-99)
[2017-08-04 04:08] LABS: PLATELET ESTIMATE ADQ (ADEQUATE)
[2017-08-04 04:09] LABS: ANISOCYTOSIS 1+ (5-10/OIF) (0-5/OIF); HYPOCHROMIA 3+ (>30/OIF) (0-2/OIF)
[2017-08-04 04:10] LABS: MICROCYTES 1+ (5-10/OIF) (0-5/OIF); TEARDROP SHAPED RBCS OCC (0-2/OIF)
[2017-08-05 05:35] LABS: BASOPHILS 1.1 %; BASOPHILS ABSOLUTE 0.03 10/3/uL (0.0-0.16); EOSINOPHILS 2.5 %; EOSINOPHILS ABSOLUTE 0.07 10/3/uL (0.0-0.53); HEMOGLOBIN 8.8 g/dL (12.0-16.0); LYMPHOCYTES 49.1 %; LYMPHOCYTES ABSOLUTE 1.36 10/3/uL (0.67-4.30); MEAN CORPUS HGB CONC 29.3 g/dL (32.0-36.0); MEAN CORPUSCULAR HEMOGLOB 21.6 pg (26.0-34.0); MEAN CORPUSCULAR VOLUME 73.5 fL (80-100); MEAN PLATELET VOLUME 10.4 fL (9.2-13.0); MONOCYTES 10.5 %; MONOCYTES ABSOLUTE 0.29 10/3/uL (0.21-1.20); NEUTROPHILS 36.8 %; NEUTROPHILS ABSOLUTE 1.02 10/3/uL (2.02-8.40); PLATELET COUNT 105 10/3/uL (150-400); RED CELL COUNT 4.08 10/6/uL (4.0-5.6); WHITE BLOOD CELLS 2.8 10/3/uL (4.5-10.5)
[2017-08-05 05:39] LABS: MANUAL DIFF NO %
[2017-08-05 05:40] LABS: INTERNATIONAL NORMAL RATI 1.4 UNITS (-); PROTIME (NOT ORD) 16.7 SEC (12.0-14.5)
[2017-08-05 05:41] LABS: PARTIAL THROMBO TIME 73.4 SEC (22.5-37.2)
[2017-08-05 05:46] LABS: BUN (BLOOD UREA NITROGEN) 15 MG/DL (6-23); CALCIUM, SERUM 8.6 MG/DL (8.5-10.4); CHLORIDE, SERUM 107 MMOL/L (96-112); CO2 (CARBON DIOXIDE) 27 MMOL/L (24-34); CREATININE 0.83 MG/DL (0.55-1.02); GFR AFRICAN AMERICAN 83 ML/MIN (>=60); GFR NON AFRICAN AMERICAN 71 ML/MIN (>=60); GLUCOSE, SERUM 214 MG/DL (60-99); SODIUM, SERUM 140 MMOL/L (135-148)
[2017-08-06 06:54] LABS: BASOPHILS ABSOLUTE 0.03 10/3/uL (0.0-0.16); EOSINOPHILS 3.8 %; EOSINOPHILS ABSOLUTE 0.11 10/3/uL (0.0-0.53); HEMATOCRIT 30.7 % (36.0-48.0); LYMPHOCYTES 42.7 %; LYMPHOCYTES ABSOLUTE 1.23 10/3/uL (0.67-4.30); MEAN CORPUS HGB CONC 29.3 g/dL (32.0-36.0); MEAN CORPUSCULAR HEMOGLOB 21.6 pg (26.0-34.0); MEAN CORPUSCULAR VOLUME 73.8 fL (80-100); MEAN PLATELET VOLUME 10.2 fL (9.2-13.0); MONOCYTES 14.6 %; MONOCYTES ABSOLUTE 0.42 10/3/uL (0.21-1.20); NEUTROPHILS 37.9 %; NEUTROPHILS ABSOLUTE 1.09 10/3/uL (2.02-8.40); PLATELET COUNT 98 10/3/uL (150-400); RBC DISTRIBUTION WIDTH 21.1 % (12.0-16.0); RED CELL COUNT 4.16 10/6/uL (4.0-5.6); WHITE BLOOD CELLS 2.9 10/3/uL (4.5-10.5)
[2017-08-06 06:58] LABS: MANUAL DIFF NO %
[2017-08-06 07:01] LABS: INTERNATIONAL NORMAL RATI 1.7 UNITS (-); PROTIME (NOT ORD) 20.1 SEC (12.0-14.5)
[2017-08-06 07:02] LABS: PARTIAL THROMBO TIME 88.2 SEC (22.5-37.2)
[2017-08-06 07:31] LABS: ANISOCYTOSIS 1+ (5-10/OIF) (0-5/OIF); PLATELET ESTIMATE DEC (ADEQUATE)
[2017-08-07 08:52] LABS: BASOPHILS 1.5 %; BASOPHILS ABSOLUTE 0.06 10/3/uL (0.0-0.16); EOSINOPHILS 3.5 %; EOSINOPHILS ABSOLUTE 0.14 10/3/uL (0.0-0.53); HEMATOCRIT 29.8 % (36.0-48.0); HEMOGLOBIN 8.7 g/dL (12.0-16.0); LYMPHOCYTES 45.7 %; LYMPHOCYTES ABSOLUTE 1.82 10/3/uL (0.67-4.30); MEAN CORPUS HGB CONC 29.2 g/dL (32.0-36.0); MEAN CORPUSCULAR HEMOGLOB 21.6 pg (26.0-34.0); MEAN CORPUSCULAR VOLUME 74.1 fL (80-100); MONOCYTES 11.3 %; MONOCYTES ABSOLUTE 0.45 10/3/uL (0.21-1.20); NEUTROPHILS ABSOLUTE 1.51 10/3/uL (2.02-8.40); PLATELET COUNT 108 10/3/uL (150-400); RBC DISTRIBUTION WIDTH 21.6 % (12.0-16.0); RED CELL COUNT 4.02 10/6/uL (4.0-5.6)
[2017-08-07 08:58] LABS: MANUAL DIFF NO %
[2017-08-07 09:03] LABS: INTERNATIONAL NORMAL RATI 2.1 UNITS (-); PROTIME (NOT ORD) 23.1 SEC (12.0-14.5)
[2017-08-07 09:04] LABS: PARTIAL THROMBO TIME 79.6 SEC (22.5-37.2)
[2017-08-07 09:22] LABS: PLATELET ESTIMATE DEC (ADEQUATE)
[2017-08-07 09:23] LABS: ANISOCYTOSIS 1+ (5-10/OIF) (0-5/OIF); MICROCYTES 1+ (5-10/OIF) (0-5/OIF)
[2017-08-08 05:05] LABS: BASOPHILS 1.2 %; BASOPHILS ABSOLUTE 0.04 10/3/uL (0.0-0.16); EOSINOPHILS 3.7 %; EOSINOPHILS ABSOLUTE 0.13 10/3/uL (0.0-0.53); HEMATOCRIT 30.7 % (36.0-48.0); HEMOGLOBIN 9.1 g/dL (12.0-16.0); LYMPHOCYTES 42.9 %; LYMPHOCYTES ABSOLUTE 1.49 10/3/uL (0.67-4.30); MEAN CORPUS HGB CONC 29.6 g/dL (32.0-36.0); MEAN CORPUSCULAR HEMOGLOB 21.9 pg (26.0-34.0); MEAN CORPUSCULAR VOLUME 73.8 fL (80-100); MONOCYTES 10.7 %; MONOCYTES ABSOLUTE 0.37 10/3/uL (0.21-1.20); NEUTROPHILS 41.5 %; NEUTROPHILS ABSOLUTE 1.44 10/3/uL (2.02-8.40); PLATELET COUNT 82 10/3/uL (150-400); RBC DISTRIBUTION WIDTH 21.9 % (12.0-16.0); RED CELL COUNT 4.16 10/6/uL (4.0-5.6); WHITE BLOOD CELLS 3.5 10/3/uL (4.5-10.5)
[2017-08-08 05:09] LABS: MANUAL DIFF NO %
[2017-08-08 05:10] LABS: BUN (BLOOD UREA NITROGEN) 13 MG/DL (6-23); CALCIUM, SERUM 9.3 MG/DL (8.5-10.4); CHLORIDE, SERUM 107 MMOL/L (96-112); CO2 (CARBON DIOXIDE) 25 MMOL/L (24-34); CREATININE 0.65 MG/DL (0.55-1.02); GFR AFRICAN AMERICAN 104 ML/MIN (>=60); GFR NON AFRICAN AMERICAN 90 ML/MIN (>=60); GLUCOSE, SERUM 102 MG/DL (60-99); POTASSIUM, SERUM 3.6 MMOL/L (3.5-5.3); SODIUM, SERUM 139 MMOL/L (135-148)
[2017-08-08 05:31] LABS: INTERNATIONAL NORMAL RATI 2.3 UNITS (-); PROTIME (NOT ORD) 24.7 SEC (12.0-14.5)
[2017-08-08 06:19] LABS: ANISOCYTOSIS 1+ (5-10/OIF) (0-5/OIF); PLATELET ESTIMATE DEC (ADEQUATE); POLYCHROMASIA 1+ (2-5/OIF) (0-1/OIF)
[2017-08-09 08:21] LABS: BASOPHILS ABSOLUTE 0.04 10/3/uL (0.0-0.16); EOSINOPHILS 3.8 %; EOSINOPHILS ABSOLUTE 0.15 10/3/uL (0.0-0.53); HEMATOCRIT 30.9 % (36.0-48.0); HEMOGLOBIN 9.1 g/dL (12.0-16.0); IMMATURE GRANULOCYTES 0.3 %; IMMATURE GRANULOCYTES ABSOLUTE 0.01 10/3/uL (0.0-0.11); LYMPHOCYTES 25.8 %; LYMPHOCYTES ABSOLUTE 1.03 10/3/uL (0.67-4.30); MEAN CORPUS HGB CONC 29.4 g/dL (32.0-36.0); MEAN CORPUSCULAR HEMOGLOB 22.1 pg (26.0-34.0); MEAN PLATELET VOLUME 10.9 fL (9.2-13.0); MONOCYTES 10.5 %; MONOCYTES ABSOLUTE 0.42 10/3/uL (0.21-1.20); NEUTROPHILS 58.6 %; NEUTROPHILS ABSOLUTE 2.35 10/3/uL (2.02-8.40); PLATELET COUNT 80 10/3/uL (150-400); RBC DISTRIBUTION WIDTH 22.2 % (12.0-16.0); RED CELL COUNT 4.12 10/6/uL (4.0-5.6)
[2017-08-09 08:23] LABS: MANUAL DIFF NO %
[2017-08-09 08:24] LABS: INTERNATIONAL NORMAL RATI 2.1 UNITS (-); PROTIME (NOT ORD) 23.5 SEC (12.0-14.5)
[2017-08-09 08:26] LABS: PARTIAL THROMBO TIME 109.2 SEC (22.5-37.2)
[2017-08-09 08:29] LABS: BUN (BLOOD UREA NITROGEN) 12 MG/DL (6-23); CALCIUM, SERUM 9.1 MG/DL (8.5-10.4); CHLORIDE, SERUM 108 MMOL/L (96-112); CO2 (CARBON DIOXIDE) 25 MMOL/L (24-34); CREATININE 0.65 MG/DL (0.55-1.02); GFR AFRICAN AMERICAN 104 ML/MIN (>=60); GFR NON AFRICAN AMERICAN 90 ML/MIN (>=60); GLUCOSE, SERUM 101 MG/DL (60-99); SODIUM, SERUM 141 MMOL/L (135-148)
[2017-08-09 08:31] LABS: POTASSIUM, SERUM 3.7 MMOL/L (3.5-5.3)
[2017-08-09 08:33] LABS: MICROCYTES 1+ (5-10/OIF) (0-5/OIF); PLATELET ESTIMATE DEC (ADEQUATE)
[2017-08-10 05:56] LABS: BASOPHILS 0.8 %; BASOPHILS ABSOLUTE 0.05 10/3/uL (0.0-0.16); EOSINOPHILS 3.2 %; EOSINOPHILS ABSOLUTE 0.19 10/3/uL (0.0-0.53); HEMATOCRIT 33.6 % (36.0-48.0); HEMOGLOBIN 9.9 g/dL (12.0-16.0); IMMATURE GRANULOCYTES 0.3 %; IMMATURE GRANULOCYTES ABSOLUTE 0.02 10/3/uL (0.0-0.11); LYMPHOCYTES 19.2 %; LYMPHOCYTES ABSOLUTE 1.15 10/3/uL (0.67-4.30); MEAN CORPUS HGB CONC 29.5 g/dL (32.0-36.0); MEAN CORPUSCULAR HEMOGLOB 21.9 pg (26.0-34.0); MEAN CORPUSCULAR VOLUME 74.3 fL (80-100); MONOCYTES 10.5 %; MONOCYTES ABSOLUTE 0.63 10/3/uL (0.21-1.20); NEUTROPHILS ABSOLUTE 3.95 10/3/uL (2.02-8.40); PLATELET COUNT 103 10/3/uL (150-400); RBC DISTRIBUTION WIDTH 22.6 % (12.0-16.0); RED CELL COUNT 4.52 10/6/uL (4.0-5.6)
[2017-08-10 05:57] LABS: MANUAL DIFF NO %
[2017-08-10 06:07] LABS: INTERNATIONAL NORMAL RATI 2.3 UNITS (-); PARTIAL THROMBO TIME 76.2 SEC (22.5-37.2); PROTIME (NOT ORD) 25.1 SEC (12.0-14.5)
[2017-08-10 06:10] LABS: A/G RATIO 0.9 (0.7-1.9); ALBUMIN 3.4 G/DL (3.5-5.0); ALKALINE PHOSPHATASE 71 U/L (45-117); BUN (BLOOD UREA NITROGEN) 11 MG/DL (6-23); CALCIUM, SERUM 9.6 MG/DL (8.5-10.4); CHLORIDE, SERUM 110 MMOL/L (96-112); CO2 (CARBON DIOXIDE) 25 MMOL/L (24-34); CREATININE 0.71 MG/DL (0.55-1.02); GFR AFRICAN AMERICAN 100 ML/MIN (>=60); GFR NON AFRICAN AMERICAN 86 ML/MIN (>=60); SODIUM, SERUM 142 MMOL/L (135-148); TOTAL BILIRUBIN 0.8 MG/DL (0-1.2); TOTAL PROTEIN 7.4 G/DL (6.0-8.5)
[2017-08-10 06:12] LABS: GLUCOSE, SERUM 70 MG/DL (60-99); POTASSIUM, SERUM 3.5 MMOL/L (3.5-5.3); SGOT(AST) 33 U/L (5-40); SGPT(ALT) 33 U/L (5-65)
[2017-08-10 06:15] LABS: MICROCYTES 1+ (5-10/OIF) (0-5/OIF); PLATELET ESTIMATE SLT DEC (ADEQUATE); POLYCHROMASIA 1+ (2-5/OIF) (0-1/OIF)
[2017-08-11 02:22] LABS: HEMATOCRIT 30.4 % (36.0-48.0); MEAN CORPUS HGB CONC 29.6 g/dL (32.0-36.0); MEAN CORPUSCULAR HEMOGLOB 22.1 pg (26.0-34.0); MEAN CORPUSCULAR VOLUME 74.7 fL (80-100); PLATELET COUNT 101 10/3/uL (150-400); RBC DISTRIBUTION WIDTH 22.9 % (12.0-16.0); RED CELL COUNT 4.07 10/6/uL (4.0-5.6)
[2017-08-11 02:25] LABS: MANUAL DIFF YES %
[2017-08-11 02:44] LABS: BUN (BLOOD UREA NITROGEN) 12 MG/DL (6-23); CALCIUM, SERUM 8.8 MG/DL (8.5-10.4); CHLORIDE, SERUM 106 MMOL/L (96-112); CO2 (CARBON DIOXIDE) 27 MMOL/L (24-34); GFR AFRICAN AMERICAN 87 ML/MIN (>=60); GFR NON AFRICAN AMERICAN 75 ML/MIN (>=60); GLUCOSE, SERUM 224 MG/DL (60-99); POTASSIUM, SERUM 3.9 MMOL/L (3.5-5.3); SODIUM, SERUM 140 MMOL/L (135-148)
[2017-08-11 02:49] LABS: INTERNATIONAL NORMAL RATI 2.7 UNITS (-); PROTIME (NOT ORD) 28.4 SEC (12.0-14.5)
[2017-08-11 03:33] LABS: GIANT PLATELET OCC; MICROCYTES 1+ (5-10/OIF) (0-5/OIF)
[2017-08-11] MEDS ORDERED: CLARIT10 PO (12:59)
[2017-08-11] MEDS ORDERED: COR40 PO (12:59)
[2017-08-11] MEDS ORDERED: PROTONIX PO (13:00)
== END 2017-08-11 13:53 | disposition home or self-care (01) | DRG 378 ==
LOC: ENRESERVTM → ENRESERV → ENRESERVDT → 5SO 18:52 → ENPENDDIS 18:52 → 5SO 08-04 16:35
PROVIDERS: Internal Medicine; Internal Medicine Cardiovascular Disease; Internal Medicine Gastroenterology
PROC: 30233N1 Transfusion of Nonautologous Red Blood Cells into Peripheral Vein, Percutaneous Approach (ICD-10-PCS; principal; 2017-07-29)
PROC: 0DBK8ZX Excision of Ascending Colon, Via Natural or Artificial Opening Endoscopic, Diagnostic (ICD-10-PCS; 2017-08-01)
PROC: 0DBP8ZX Excision of Rectum, Via Natural or Artificial Opening Endoscopic, Diagnostic (ICD-10-PCS; 2017-08-01)
PROC: 0DJ08ZZ Inspection of Upper Intestinal Tract, Via Natural or Artificial Opening Endoscopic (ICD-10-PCS; 2017-08-01 07:30)
DX: K92.2 Gastrointestinal hemorrhage, unspecified (principal); D62 Acute posthemorrhagic anemia; D61.818 Other pancytopenia; K76.6 Portal hypertension; E11.65 Type 2 diabetes mellitus with hyperglycemia; I10 Essential (primary) hypertension; G25.81 Restless legs syndrome; D50.9 Iron deficiency anemia, unspecified; K31.89 Other diseases of stomach and duodenum; I25.10 Atherosclerotic heart disease of native coronary artery without angina pectoris; K74.69 Other cirrhosis of liver; K75.81 Nonalcoholic steatohepatitis (NASH); Z95.2 Presence of prosthetic heart valve; Z79.01 Long term (current) use of anticoagulants; Z79.899 Other long term (current) drug therapy; Z90.710 Acquired absence of both cervix and uterus; Z98.890 Other specified postprocedural states; Z83.3 Family history of diabetes mellitus; Z80.3 Family history of malignant neoplasm of breast; K64.0 First degree hemorrhoids; K57.30 Diverticulosis of large intestine without perforation or abscess without bleeding; I85.10 Secondary esophageal varices without bleeding
CPT/HCPCS: 36415; 71260; 71275; 80048; 80053; 80074; 80076; 82103; 82272; 82390; 82728; 82962; 83010; 83540; 83550; 83615; 83880; 84484; 85014; 85018; 85025; 85045; 85610; 85730; 86039; 86255; 86850; 86900; 86901; 86920; 88305; 93005; 93306; 93312; 93320; 93325; 93975; A9270-GY; J1750; J2405; P9016; Q9967